=== PATIENT | female | born 1935 | race Caucasian/White ===

== ENCOUNTER 2017-08-15 10:47 | Inpatient (IN) | payer OTHER ==
[~2017-08-15] VITALS: Ht 147.3 cm; Wt 90.1 kg
[~2017-08-15 10:47] MED LIST: ACCUPRIL5 MG PO; ASPIR 8181 M1 PO; AVAPRO75 MG PO; CITALOPRAM HBR20 MG PO; CLONIDINE HCL0.2 MG PO; DETROL1 MG PO; FLEXERIL5 MG PO; FUROSEMIDE80 MG PO; GLUCOPHAGE500 M1 PO; HUMULIN 70100 UNIT/2 SC; HYDROCODON-ACE1 EAC7 PO; K-DUR20 MEQ PO; KLOR-CON 1010 ME1 PO; LABETALOL HCL200 MG PO; LASIX40 MG PO; LIDODERM 5% P1 PATCH TD; METFORMIN HCL500 M1 PO; NORMODYNE,TRAND50 MG PO; NOVOLIN N100 UNIT/1 SQ; PRAVASTATIN SOD10 MG PO; PRAVASTATIN SOD40 MG PO; RANITIDINE HCL150 M1 PO; TOPROL XL50 MG PO; TRAMADOL HCL50 MG PO; VICODIN 5-3001 EACH PO; VICODIN,LORT1 TABLET PO; VITAMIN B12-FO1 EACH PO; ZANTAC150 MG PO
[2017-08-15 11:49] LABS: APPEARANCE CLOUDY ((CLEAR)); BILIRUBIN NEGATIVE; BLOOD MODERATE; COLOR YELLOW ((YELLOW)); GLUCOSE (STRIP) >=500; KETONES 20; LEUKOCYTES TRACE; NITRITE POSITIVE; PROTEIN (STRIP) 100; SPECIFIC GRAVITY 1.011 (1.000-1.030)
[2017-08-15 12:02] LABS: BASOPHIL (%) 0.2 % (0-1); EOSINOPHIL (%) 0 % (0-5); HEMATOCRIT 40.8 % (36.0-46.0); HEMOGLOBIN 14.3 G/DL (11.9-15.5); IMMATURE GRANULOCYTE (%) 0.4 % (0.0-0.7); LYMPHOCYTE COUNT 0.7 K/uL (1.0-2.8); MCH 31.2 PG (29.0-34.0); MCV 88.9 FL (83-99); MONOCYTE (%) 5.5 % (3-12); MONOCYTE COUNT 0.6 K/uL (0-0.8); NEUTROPHIL (%) 87.9 % (45-76); NEUTROPHIL COUNT 9.6 K/uL (1.8-6.4); PLATELET COUNT 162 K/uL (156-360); RBC DIS.WIDTH-CV 12.8 % (11.8-14.6); RBC DIS.WIDTH-SD 41.9 % (39-53); RED BLOOD COUNT 4.59 M/uL (3.80-5.20); WHITE BLOOD COUNT 10.9 K/uL (4.1-10.2)
[2017-08-15 12:05] LABS: AMORPHOUS URATES CRYSTALS 2+; BACTERIA 3+ /HPF; EPITHELIAL CELLS RARE /HPF; MUCUS NONE SEEN /LPF; UCUL ADDED? YES
[2017-08-15 12:12] LABS: CHLORIDE 99 mEq/L (99-109); POTASSIUM 3.1 mEq/L (3.7-5.4); SODIUM 135 mEq/L (136-147)
[2017-08-15 12:14] LABS: GLUCOSE 427 mg/dL (70-99)
[2017-08-15 12:18] LABS: GFR ESTIMATE (CALCULATED) 56 mL/min/
[2017-08-15 12:19] LABS: UREA NITROGEN (BUN) 11 mg/dL (9-23)
[2017-08-15] MEDS ORDERED: AMLODIPINE-BEN1 EAC2 PO (14:23)
[2017-08-15] MEDS ORDERED: LANTUS 10100 UNITS/ SC (14:24)
[2017-08-15 15:46] VITALS: BP 121/57
[2017-08-15 19:27] VITALS: BP 188/82
[2017-08-15 23:14] VITALS: BP 116/62
[2017-08-16 04:02] VITALS: BP 109/55
[2017-08-16 06:20] LABS: HEMATOCRIT 38.4 % (36.0-46.0); HEMOGLOBIN 12.9 G/DL (11.9-15.5); MCH 30.6 PG (29.0-34.0); MCHC 33.6 G/DL (30.0-36.0); PLATELET COUNT 154 K/uL (156-360); RBC DIS.WIDTH-SD 43.1 % (39-53); RED BLOOD COUNT 4.22 M/uL (3.80-5.20); WHITE BLOOD COUNT 9.2 K/uL (4.1-10.2)
[2017-08-16 06:46] LABS: CHLORIDE 102 MEQ/L (99-109); CREATININE 0.9 MG/DL (0.6-1.3); GFR ESTIMATE (CALCULATED) > 59 mL/min/; POTASSIUM 3.2 MEQ/L (3.7-5.4); SODIUM 141 MEQ/L (136-147); UREA NITROGEN (BUN) 13 mg/dL (9-23)
[2017-08-16 06:48] LABS: GLUCOSE 162 mg/dL (70-99)
[2017-08-16 07:52] VITALS: BP 135/65
[2017-08-16 12:00] VITALS: BP 115/59
[2017-08-16 15:38] VITALS: BP 153/70
[2017-08-16 17:25] LABS: C DIFF TOXIN NEGATIVE (NEGATIVE)
[2017-08-16 19:46] VITALS: BP 146/62
[2017-08-16 23:37] VITALS: BP 124/67
[2017-08-17 03:32] VITALS: BP 118/62
[2017-08-17 06:52] LABS: HEMATOCRIT 37.3 % (36.0-46.0); HEMOGLOBIN 12.7 G/DL (11.9-15.5); MCH 30.7 PG (29.0-34.0); MCV 90.1 FL (83-99); PLATELET COUNT 137 K/uL (156-360); RBC DIS.WIDTH-CV 12.8 % (11.8-14.6); RBC DIS.WIDTH-SD 42.3 % (39-53); RED BLOOD COUNT 4.14 M/uL (3.80-5.20); WHITE BLOOD COUNT 6.7 K/uL (4.1-10.2)
[2017-08-17 07:11] LABS: CHLORIDE 104 MEQ/L (99-109); CREATININE 0.7 MG/DL (0.6-1.3); GFR ESTIMATE (CALCULATED) > 59 mL/min/; GLUCOSE 104 mg/dL (70-99); MAGNESIUM 1.6 mg/dl (1.3-2.7); POTASSIUM 3.5 MEQ/L (3.7-5.4); SODIUM 137 MEQ/L (136-147); UREA NITROGEN (BUN) 8 mg/dL (9-23)
[2017-08-17 07:31] VITALS: BP 149/70
[2017-08-17 11:53] VITALS: BP 143/71
[2017-08-17 16:17] VITALS: BP 175/80
[2017-08-17 19:58] VITALS: BP 105/99
[2017-08-17 23:56] VITALS: BP 162/81
[2017-08-18 03:53] VITALS: BP 150/69
[2017-08-18 06:19] LABS: BASOPHIL (%) 0.4 % (0-1); EOSINOPHIL (%) 1.2 % (0-5); EOSINOPHIL COUNT 0.1 K/uL (0-0.3); HEMATOCRIT 36.8 % (36.0-46.0); HEMOGLOBIN 12.7 G/DL (11.9-15.5); IMMATURE GRANULOCYTE (%) 0.4 % (0.0-0.7); LYMPHOCYTE (%) 24.3 % (15-42); LYMPHOCYTE COUNT 1.7 K/uL (1.0-2.8); MCH 30.8 PG (29.0-34.0); MCHC 34.5 G/DL (30.0-36.0); MCV 89.1 FL (83-99); MONOCYTE (%) 10.1 % (3-12); MONOCYTE COUNT 0.7 K/uL (0-0.8); NEUTROPHIL (%) 63.6 % (45-76); NEUTROPHIL COUNT 4.3 K/uL (1.8-6.4); PLATELET COUNT 158 K/uL (156-360); RBC DIS.WIDTH-CV 12.7 % (11.8-14.6); RBC DIS.WIDTH-SD 41.6 % (39-53); RED BLOOD COUNT 4.13 M/uL (3.80-5.20); WHITE BLOOD COUNT 6.8 K/uL (4.1-10.2)
[2017-08-18 07:16] LABS: CHLORIDE 105 MEQ/L (99-109); CREATININE 0.6 MG/DL (0.6-1.3); GFR ESTIMATE (CALCULATED) > 59 mL/min/; POTASSIUM 3.3 MEQ/L (3.7-5.4); SODIUM 142 MEQ/L (136-147); UREA NITROGEN (BUN) 7 mg/dL (9-23)
[2017-08-18 07:17] LABS: GLUCOSE 74 mg/dL (70-99)
[2017-08-18 09:09] VITALS: BP 155/70
[2017-08-18 15:24] VITALS: BP 160/70
[2017-08-19 00:03] VITALS: BP 139/65
[2017-08-19 06:31] LABS: HEMATOCRIT 40.1 % (36.0-46.0); HEMOGLOBIN 13.2 G/DL (11.9-15.5); MCH 29.5 PG (29.0-34.0); MCHC 32.9 G/DL (30.0-36.0); MCV 89.5 FL (83-99); PLATELET COUNT 201 K/uL (156-360); RBC DIS.WIDTH-CV 12.6 % (11.8-14.6); RBC DIS.WIDTH-SD 41.9 % (39-53); RED BLOOD COUNT 4.48 M/uL (3.80-5.20); WHITE BLOOD COUNT 7.4 K/uL (4.1-10.2)
[2017-08-19 07:28] LABS: CHLORIDE 103 MEQ/L (99-109); CREATININE 0.6 MG/DL (0.6-1.3); GFR ESTIMATE (CALCULATED) > 59 mL/min/; GLUCOSE 63 mg/dL (70-99); POTASSIUM 3.8 MEQ/L (3.7-5.4); SODIUM 142 MEQ/L (136-147); UREA NITROGEN (BUN) 8 mg/dL (9-23)
[2017-08-19 07:44] VITALS: BP 146/70
[2017-08-19] MEDS ORDERED: BACTRIM,SEPT1 TABLET PO (13:04)
== END 2017-08-19 17:37 | disposition home health service (06) | DRG 872 ==
LOC: EME 10:47 → 5SOUTH 14:10 → EDOF 14:10 → ENRESERV 14:13 → EDOF 14:28 → ENRESERV 14:41 → 5SOUTH 15:35 → ENPENDDIS 08-19 13:16 → 5SOUTH 08-19 17:37
PROVIDERS: Emergency Medicine; Family Medicine; Hospitalist; Internal Medicine
DX: A41.9 Sepsis, unspecified organism (principal); N12 Tubulo-interstitial nephritis, not specified as acute or chronic; E87.1 Hypo-osmolality and hyponatremia; E86.0 Dehydration; E11.65 Type 2 diabetes mellitus with hyperglycemia; E87.6 Hypokalemia; Z85.42 Personal history of malignant neoplasm of other parts of uterus; Z90.710 Acquired absence of both cervix and uterus; I10 Essential (primary) hypertension; M19.90 Unspecified osteoarthritis, unspecified site; E66.01 Morbid (severe) obesity due to excess calories; Z68.41 Body mass index [BMI] 40.0-44.9, adult; B96.20 Unspecified Escherichia coli [E. coli] as the cause of diseases classified elsewhere; R32 Unspecified urinary incontinence; Z79.4 Long term (current) use of insulin
CPT/HCPCS: 70450; 71045; 71046; 73564; 80048; 81003; 82948; 83036; 83605; 83735; 85025; 85027; 87040; 87077; 87086; 87186; 87493; 87801; 94799; 99281; 99285; A6214; J0696; J1650; J1815; J2405; J3480; J7030